=== PATIENT | female | born 1965 | race Caucasian/White ===

== ENCOUNTER → 2016-11-27 | Outpatient (CLI) | payer BC | LOC: MC.RAD 07:00 | DX: Z12.31 Encounter for screening mammogram for malignant neoplasm of breast (principal) ==

== ENCOUNTER → 2019-07-10 | Outpatient (CLI) | payer BC | LOC: MC.RAD 08:01 | DX: Z12.31 Encounter for screening mammogram for malignant neoplasm of breast (principal) ==